=== PATIENT | female | born 1955 | race African-American/Black ===

== ENCOUNTER → 2016-10-06 | Outpatient (CLI) | payer BC ==
--- NOTE | ~2016-10-06 | MY11 ---
[facility] A Service of [facility] RADIOLOGY TEXT RESULTS PATIENT: FATMATA JONES LOCATION: [facility] : 59 UNIT #: [id number] AGE: [address]: Karin Burt MD SEX: F ORDER DR: [id number] [facility] [address] [place], [place] [address] [id number] O MR#: [id number] Acc #: [id number] NAME: FATMATA JONES : 1955 SEX: F STUDY DATE/TIME: 10/06/2016 13:13 UNIT: [facility] ROOM: STUDY DESCRIPTION: MY Mammogram Screening Dig Severiano Attending Physician: Karin Burt M.D. Ordering Physician: Karin Burt M.D. Primary Care Physician: Karin Burt M.D. MEDICAL IMAGING REPORT This report is preliminary unless electronic signature is present EXAM Digital screening mammogram, 10/06/2016, [facility]. HISTORY 61-year-old woman no risk elevation, although the history form indicates breast cancer on mother's side. Annual screen. COMPARISON Mammograms date to 06/04/2006 with most recent 10/04/2015. TECHNIQUE Digital imaging of each breast was completed utilizing screening protocol. Review includes FDA-approved CAD device. FINDINGS Breast parenchyma is fatty replaced. 3 subcentimeter nodules in the left breast anterior third have benign characteristics and are essentially stable compared to the 2013 exam. Single subcentimeter nodule also present right breast. This has benign characteristics. Small grouping of microcalcifications upper outer anterior third left breast have not changed significantly over the past few exams. These will remain under annual observation. I see no suspicious mass and no architectural disturbance. IMPRESSION Benign mammogram. Annual screening recommended. Patients over the age of 40 are entered into a reminder system with target due date for the next mammogram. A result letter will also be sent to the patient. BIRADS: 2 Benign finding. [facility] A Service [facility] RADIOLOGY TEXT RESULTS PATIENT: FATMATA JONES LOCATION: [facility] : 59 UNIT #: [id number] AGE: [address]: Karin Burt MD SEX: F ORDER DR: Dictated by... Oliver Jose M.D. THIS IS AN ELECTRONICALLY VERIFIED REPORT Oliver Jose M.D. at 10/06/2016 2:52 PM TONJA/[email or web address] TD: 10/06/2016 14:27 JOB #: [id number] MEDICAL IMAGING REPORT Page 1 of 1 COPY
== END | disposition home or self-care (01) ==
LOC: CWCC 12:32
DX: Z12.31 Encounter for screening mammogram for malignant neoplasm of breast (principal); Z80.3 Family history of malignant neoplasm of breast
CPT/HCPCS: G0202